=== PATIENT | male | born 1965 | race Caucasian/White ===

== ENCOUNTER → 2016-04-09 | Outpatient (CLI) | payer OTHER ==
[~2016-04-09] MED LIST: no medications
[2016-04-09 13:51] LABS: ANION GAP 8 MEQ/L (8-16); BLOOD UREA NITROGEN 13 MG/DL (7-18); CARBON DIOXIDE LEVEL 28 MEQ/L (21-32); CHLORIDE LEVEL 108 MEQ/L (98-107); CREATININE FOR GFR 0.86 MG/DL (0.70-1.30); GLOMERULAR FILTRATION RATE > 60.0 (>56); GLUCOSE, FASTING 100 MG/DL (70-105); POTASSIUM SERUM 4.8 MEQ/L (3.5-5.1); SODIUM LEVEL 144 MEQ/L (136-145)
[2016-04-09 14:13] LABS: MEAN CORPUSCULAR HEMOGLOBIN 30.1 pg (27.0-33.0); MEAN CORPUSCULAR HGB CONC 31.6 g/dl (32.0-36.5); RED CELL DISTRIBUTION WIDTH 12.6 % (11.5-14.5); WHITE BLOOD COUNT 6.5 K/mm3 (4.0-10.0)
== END ==
LOC: M SMT 10:10
PROVIDERS: ATTEND Urology
DX: N50.3 Cyst of epididymis (principal)

== ENCOUNTER → 2016-04-18 | Day surgery (SDC) | payer OTHER ==
[~2016-04-18] VITALS: Ht 165.1 cm; Wt 68.5 kg
[~2016-04-18] MED LIST changes: +BUPIVACAINE HCL 0.25% 30 ML VIAL As Ordered ONE; +BUPIVACAINE HCL 0.25% 30 ML VIAL SC ONE; +GLYCOPYRROLATE INJ 0.2 MG/ML 2 ML VIAL As Ordered ONE; +LIDOCAINE 1% MDV 20ML VIAL As Ordered ONE; +LIDOCAINE 1% MDV 20ML VIAL SQ ONE; +LIDOCAINE 2% INJ 100 MG/5 ML SDV (FOR ANES.) As Ordered ONE; +LR 1,000 ML IV SCH; +MIDAZOLAM INJ 2 MG/2 ML VIAL (J2250) As Ordered ONE; +ONDANSETRON 4MG/2ML VIAL (J2405) As Ordered ONE; +ONDANSETRON 4MG/2ML VIAL (J2405) IV PRN; +PERCOCET 5MG/325MG TAB PO PRN; +PHENYLephrine HCL 500 MCG/5 ML (100MCG/ML) SYRINGE (J2370) As Ordered ONE; +PROPOFOL 200 MG/20 ML VIAL As Ordered ONE; +dexameTHASONE 4 MG/ML 1ML VIAL (J1100) As Ordered ONE; +ePHEDrine SULFATE 25 MG/5 ML(5MG/ML) SYRINGE As Ordered ONE; +fentaNYL 100 MCG/2 ML INJECTION (J3010) As Ordered ONE; +fentaNYL 100 MCG/2 ML INJECTION (J3010) IV PRN; +fentaNYL 250 MCG/5 ML INJECTION (J3010) As Ordered ONE
[2016-04-18] MEDS: LR 1,000 ML IV SCH ×2 (08:58→09:03)
[2016-04-18 13:10] VITALS: BP 165/85
--- NOTE | 2016-04-18 21:37 | RO ---
DATE OF PROCEDURE: 04/18/2016 PREPROCEDURE DIAGNOSIS: Right epididymal cysts. POSTPROCEDURE DIAGNOSIS: Right epididymal cysts. PROCEDURE: Removal of right epididymal cysts. SURGEON: Dr. Sky Hutchinson PILL PACKER: None. ANESTHESIA: General. OPERATIVE INDICATIONS: This is a 50-year-old male who was found to have bilateral epididymal cysts. He was brought to the operating room about 2 months ago for removal of left epididymal cysts. He was brought to the operating room today for removal of right epididymal cysts. DESCRIPTION OF PROCEDURE: The patient was brought to the operating room where general anesthesia was induced. Prophylactic antibiotics were infused. He was then placed in the supine position and prepped and draped in the usual sterile fashion. At this point, an approximately 5 cm transverse incision was made over the right hemiscrotum. We then dissected down to the scrotal wall layers and the testicle was delivered out of the right hemiscrotum. At this point, we then dissected down and then opened the tunica vaginalis. At this point, it was clear that the patient did not have a hydrocele, but instead large right epididymal cysts. We then carefully dissected the epididymal cysts off of the epididymis using a combination of Bovie electrocautery and Metzenbaum scissors. Once this was done, the epididymal cysts were delivered off the table and to be sent for pathologic analysis. At this point, all bleeding was controlled with the Bovie. At this point, hemostasis was excellent. We then checked the testicle , and it appeared to be normal. At this point, the testicle was then delivered back within the right hemiscrotum in its normal anatomic position. I then closed the dartos with a running #3-0 chromic stitch. At this point, the skin was closed with interrupted #2-0 chromic stitches. Local anesthesia was then applied. Dressings were then applied and this marked the conclusion of the procedure. The patient was then awakened from anesthesia, transported to the recovery room in stable condition. ESTIMATED BLOOD LOSS: 10 mL. COMPLICATIONS: None. SPECIMENS: Right epididymal cyst. PLAN: The patient will followup in the clinic in a few weeks for a postoperative visit. MICHELLE
== END | disposition home or self-care (01) ==
LOC: M SDC 08:08
PROVIDERS: ATTEND Urology
DX: N50.3 Cyst of epididymis (principal)
CPT/HCPCS: 54840; 88305; J0690; J1100; J2250; J2370; J2405; J3010

== ENCOUNTER 2024-04-29 10:31 | Observation (INO) | payer OTHER ==
[~2024-04-29] VITALS: Ht 167.6 cm; Wt 66.1 kg
[2024-04-29] MEDS: CEFUROXIME 1MG/0.1ML INTRACAMERAL INJ As Ordered ONE (06:41)
[2024-04-29] MEDS: LIDOCAINE 1% SDV 5ML VIAL As Ordered ONE (06:41)
[2024-04-29] MEDS: BSS IRRIG/VANCO(10MG)/TOBRA(5MG)/EPINEPH(1:1000-0.5CC)500ML BAG-ORONLY As Ordered ONE (07:15)
[~2024-04-29 10:31] MED LIST changes: -BUPIVACAINE HCL 0.25% 30 ML VIAL As Ordered ONE; -BUPIVACAINE HCL 0.25% 30 ML VIAL SC ONE; +CYCLOPENTOLATE 1% OPHTH SOLN 2ML BTL OD SCH; -GLYCOPYRROLATE INJ 0.2 MG/ML 2 ML VIAL As Ordered ONE; -LIDOCAINE 1% MDV 20ML VIAL As Ordered ONE; -LIDOCAINE 1% MDV 20ML VIAL SQ ONE; -LIDOCAINE 2% INJ 100 MG/5 ML SDV (FOR ANES.) As Ordered ONE; +LIDOCAINE 3.5 % 1ML OPHTH TOPICAL GEL OU ONE; -LR 1,000 ML IV SCH; -MIDAZOLAM INJ 2 MG/2 ML VIAL (J2250) As Ordered ONE; +OFLOXACIN 0.3 % (OCUFLOX) OPTH SOL 5ML OD ONE; -ONDANSETRON 4MG/2ML VIAL (J2405) As Ordered ONE; -ONDANSETRON 4MG/2ML VIAL (J2405) IV PRN; -PERCOCET 5MG/325MG TAB PO PRN; +PHENYLEPHRINE 10% OPHTH SOL 5ML OD PRN; +PHENYLEPHRINE 2.5% OPHTH SOL 2ML OD SCH; -PHENYLephrine HCL 500 MCG/5 ML (100MCG/ML) SYRINGE (J2370) As Ordered ONE; -PROPOFOL 200 MG/20 ML VIAL As Ordered ONE; +TROPICAMIDE 1% OPHTH SOLN 15ML OD SCH; -dexameTHASONE 4 MG/ML 1ML VIAL (J1100) As Ordered ONE; -ePHEDrine SULFATE 25 MG/5 ML(5MG/ML) SYRINGE As Ordered ONE; -fentaNYL 100 MCG/2 ML INJECTION (J3010) As Ordered ONE; -fentaNYL 100 MCG/2 ML INJECTION (J3010) IV PRN; -fentaNYL 250 MCG/5 ML INJECTION (J3010) As Ordered ONE
[2024-04-29] MEDS ORDERED: MIDAZOLAM INJ 2MG/2ML VIAL As Ordered ONE (11:35)
[2024-04-29] MEDS ORDERED: fentaNYL 100 MCG/2 ML INJECTION As Ordered ONE (11:35)
[2024-04-29] MEDS: **hydrALAZINE HCL** 25 MG TAB PO ONE (13:39)
[2024-04-29] MEDS ORDERED: MOM 30ML SUSPENSION UDC PO PRN (14:05)
[2024-04-29] MEDS ORDERED: MAALOX 30 ML SUSP *UDC PO PRN (14:05)
[2024-04-29] MEDS: hydrALAZINE 20MG/ML 1ML VIAL IV PRN (14:46)
[2024-04-29 15:45] VITALS: BP 188/96; TEMP 98; O2SAT 98
[2024-04-29 15:54] LABS: BLOOD UREA NITROGEN 16 MG/DL (9-23); CALCIUM LEVEL 9.3 MG/DL (8.3-10.6); CARBON DIOXIDE LEVEL 28 MMOL/L (20-31); CHLORIDE LEVEL 105 MMOL/L (98-107); CREATININE FOR GFR 0.84 MG/DL (0.70-1.30); GLOMERULAR FILTRATION RATE > 60.0 (>49); GLUCOSE, FASTING 91 MG/DL (74-106); POTASSIUM SERUM 4.5 MMOL/L (3.5-5.1); SODIUM LEVEL 142 MMOL/L (136-145)
[2024-04-29] MEDS: ACETAMINOPHEN 325 MG TAB PO PRN (16:29)
[2024-04-29] MEDS: **hydrALAZINE** 50 MG TAB PO SCH (17:58)
[2024-04-29] MEDS ORDERED: ACET-897 PO (18:53)
[2024-04-29] MEDS ORDERED: HOME MED LIST COMPLETE! XX SCH (18:55)
[2024-04-29 20:41] VITALS: BP 161/85; TEMP 97.5; O2SAT 97
[2024-04-29 23:34] VITALS: BP 152/92; TEMP 98.1; O2SAT 97
[2024-04-30 04:40] VITALS: BP 145/89; TEMP 97.8; O2SAT 98
[2024-04-30 06:09] LABS: BASO # 0.1 10^3/uL (0.0-0.2); BASO % 1.1 % (0.0-1.0); EOS # 0.2 10^3/uL (0.0-0.5); EOS % 3.5 % (0.0-3.0); HEMATOCRIT 43.9 % (42.0-52.0); HEMOGLOBIN 14.7 g/dl (13.5-17.5); LYMPH # 1.9 10^3/uL (1.5-5.0); LYMPH % 28.4 % (24.0-44.0); MEAN CORPUSCULAR HEMOGLOBIN 31.3 pg (27.0-33.0); MEAN CORPUSCULAR HGB CONC 33.5 g/dl (32.0-36.5); MEAN CORPUSCULAR VOLUME 93.6 fl (80.0-96.0); MONO # 0.8 10^3/uL (0.0-0.8); MONO % 11.9 % (2.0-8.0); NEUTROPHILS # 3.7 10^3/uL (1.5-8.5); NEUTROPHILS % 54.8 % (36.0-66.0); PLATELET COUNT, AUTOMATED 311 10^3/uL (150-450); RED BLOOD COUNT 4.69 10^6/uL (4.30-6.10); WHITE BLOOD COUNT 6.7 10^3/uL (4.0-10.0)
[2024-04-30 06:35] LABS: BLOOD UREA NITROGEN 16 MG/DL (9-23); CALCIUM LEVEL 9.2 MG/DL (8.3-10.6); CARBON DIOXIDE LEVEL 24 MMOL/L (20-31); CHLORIDE LEVEL 108 MMOL/L (98-107); CHOLESTEROL LEVEL 245 MG/DL (<200); CHOLESTEROL RISK RATIO 3.82 (<5); CREATININE FOR GFR 0.87 MG/DL (0.70-1.30); GLOMERULAR FILTRATION RATE > 60.0 (>49); GLUCOSE, FASTING 101 MG/DL (74-106); LDL CHOLESTEROL 158.4 MG/DL (<100); MAGNESIUM LEVEL 1.9 MG/DL (1.8-2.4); POTASSIUM SERUM 4.6 MMOL/L (3.5-5.1); SODIUM LEVEL 141 MMOL/L (136-145); TRIGLYCERIDES LEVEL 113 MG/DL (<150)
[2024-04-30 07:54] LABS: HEMOGLOBIN A1c 5.5 % (4.0-6.0)
[2024-04-30 08:00] VITALS: BP 162/90; TEMP 98.9; O2SAT 96
[2024-04-30] MEDS: ATORVASTATIN 20 MG TAB PO SCH (08:32)
[2024-04-30 08:37] VITALS: BP 162/90
[2024-04-30] MEDS: ENOXAPARIN 40MG/0.4ML SYRINGE (J1650 PER 10MG) SC SCH (08:37)
[2024-04-30 10:30] VITALS: BP 144/98; O2SAT 76
[2024-04-30] MEDS ORDERED: AMLO1TAB25 PO (11:01)
[2024-04-30] MEDS ORDERED: BLOOKIT XX (11:01)
[2024-04-30] MEDS ORDERED: HYDR50TA46 PO (11:01)
[2024-04-30] MEDS ORDERED: ATOR1TAB21 PO (11:01)
== END 2024-04-30 12:31 | disposition home or self-care (01) ==
LOC: M SDC 10:31 → M PCU 10:32
PROVIDERS: ADMIT Student in an Organized Health Care Education/Training Program; ATTEND Ophthalmology
DX: H25.11 Age-related nuclear cataract, right eye (principal); Z53.9 Procedure and treatment not carried out, unspecified reason
CPT/HCPCS: 36415; 70450; 80048; 80061; 83036; 83735; 84484; 85025; 93005; J0360; J1650

== ENCOUNTER 2024-05-27 06:17 | Day surgery (SDC) | payer OTHER ==
[~2024-05-27] VITALS: Ht 167.6 cm; Wt 69.1 kg
[~2024-05-27 06:17] MED LIST changes: +ACET-897 PO; +AMLO10TA PO; +AMLO1TAB25 PO; +ATOR1TAB21 PO; +ATOR40TA75 PO; +BLOOKIT XX; -CYCLOPENTOLATE 1% OPHTH SOLN 2ML BTL OD SCH; +HYDR50TA46 PO; -LIDOCAINE 3.5 % 1ML OPHTH TOPICAL GEL OU ONE; +LISI10TA22 PO; -OFLOXACIN 0.3 % (OCUFLOX) OPTH SOL 5ML OD ONE; -PHENYLEPHRINE 2.5% OPHTH SOL 2ML OD SCH; -TROPICAMIDE 1% OPHTH SOLN 15ML OD SCH
[2024-05-27] MEDS: CYCLOPENTOLATE 1% OPHTH SOLN 2ML BTL OD SCH (06:38)
[2024-05-27] MEDS: TROPICAMIDE 1% OPHTH SOLN 15ML OD SCH (06:38)
[2024-05-27] MEDS: LIDOCAINE 3.5 % 1ML OPHTH TOPICAL GEL OU ONE (06:38)
[2024-05-27] MEDS: PHENYLEPHRINE 2.5% OPHTH SOL 2ML OD SCH (06:38)
[2024-05-27] MEDS: OFLOXACIN 0.3 % (OCUFLOX) OPTH SOL 5ML OD ONE (06:38)
[2024-05-27] MEDS ORDERED: MIDAZOLAM INJ 2MG/2ML VIAL As Ordered ONE (06:56)
[2024-05-27] MEDS ORDERED: fentaNYL 100 MCG/2 ML INJECTION As Ordered ONE (06:56)
[2024-05-27] MEDS: CEFUROXIME 1MG/0.1ML INTRACAMERAL INJ As Ordered ONE (08:12)
[2024-05-27] MEDS: LIDOCAINE 1% SDV 5ML VIAL As Ordered ONE (08:12)
[2024-05-27] MEDS: TRYPAN BLUE 0.06 % 2.25 ML OPHTH SYR (VISIONBLUE) As Ordered ONE (08:13)
[2024-05-27] MEDS: VISCOAT 40-30MG/ML 0.5ML SYRINGE As Ordered ONE (08:13)
[2024-05-27] MEDS: BSS IRRIG/VANCO(10MG)/TOBRA(5MG)/EPINEPH(1:1000-0.5CC)500ML BAG-ORONLY As Ordered ONE (08:13)
[2024-05-27 08:24] VITALS: BP 131/81; TEMP 97.6; O2SAT 96
== END 2024-05-27 08:37 | disposition home or self-care (01) ==
LOC: M SDC 06:17
PROVIDERS: ATTEND Ophthalmology
DX: H25.11 Age-related nuclear cataract, right eye (principal); I10 Essential (primary) hypertension; E78.5 Hyperlipidemia, unspecified; F12.10 Cannabis abuse, uncomplicated; Z79.899 Other long term (current) drug therapy
CPT/HCPCS: 66984; J0697; J2250; J3010; V2632